=== PATIENT | male | born 2000 | race Hispanic/Latino ===

== ENCOUNTER 2024-02-19 01:25 | Emergency (ER) | payer SELFPAY ==
[2024-02-19 01:27] VITALS: BP 168/100
--- NOTE | 2024-02-19 03:10 | ED.GENMED ---
History of Present Illness
General
Chief Complaint: Ear Problem
Source: patient
Exam Limitations: none
Time Seen by Provider: 02/19/24 03:04
History of Present Illness
History of Present Illness:
This is a 23 year old male that comes in with c/o left ear pain. States that he started 3 days ago with pain in the left ear. States that he feels like there is a lump in front of the ear and behind. States that it is getting worse and that he can
only eat soup as when he bits down he had pain. Denies any fever, chills, chest pain, SOB, abd pain, nausea, vomiting, diarrhea, headache, dizziness.
Past History
Past History
ED Past Medical History: None
ED Past Surgical History: None
Social History
Tobacco: Smoker
Alcohol: Occasional
Drug: None
Personal: Single
Living: with family
Employment: Employed
Family History
Family History: Other (Noncontributory)
Review of Systems
Review of Systems
All Other Systems: ROS reviewed and negative except as documented in HPI and ROS
Constitutional: Reports no symptoms; Denies fever or chills
EENT: Reports other (Left ear pain)
Respiratory: Reports no symptoms; Denies cough or trouble breathing
Cardiac: Reports no symptoms; Denies chest pain
ABD/GI: Reports no symptoms; Denies abdominal pain, nausea, vomiting or diarrhea
: Reports no symptoms; Denies dysuria, frequency or urgency
Musculoskeletal: Reports no symptoms
Skin: Reports no symptoms
Neurological: Reports no symptoms; Denies dizzy or headache
Psychiatric: Reports no symptoms
Phy Exam
General Physical Exam
General Presentation: well appearing and no apparent distress
General age: appears stated age
General Skin: warm and dry
General Habitus: normal
General Mental: alert
General Hydration: appears well hydrated
ENT Exam
ENT Exam: pharynx normal, neck supple and TM's abnormal (Left otitis media)
Eye Exam
Eye Exam: EOMI
Cardiovascular Exam
Cardiovascular Exam: regular rate/rhythm and no murmur
Pulmonary Exam
Pulmonary Exam: lungs clear, no respiratory distress, no rales, chest non tender, no crackles, no rhonchi and no cough
Musculoskeletal Exam
Musculoskeletal Exam: full ROM
Skin Exam
Skin Exam: normal color, warm/dry, no rash and no petechia
Psychiatric Exam
Psychiatric Exam: normal mood/affect
Course
Orders/Labs/Results
Orders:
Orders
02/19/24 03:10
Amoxicillin 875 mg/Clav 125 mg [Augmentin 875 mg/125 mg] 1 tablet PO NOW STA
Vital Signs
Initial and Last Documented VS:
Initial Vital Signs
Temp Pulse Resp BP Pulse Ox
98.3 F 93 20 168/100 97
02/19/24 01:27 02/19/24 01:27 02/19/24 01:27 02/19/24 01:27 02/19/24 01:27
Last Documented Vital Signs
Temp Pulse Resp BP Pulse Ox
98.3 F 93 20 168/100 97
02/19/24 01:27 02/19/24 01:27 02/19/24 01:27 02/19/24 01:27 02/19/24 01:27
MDM/Problems Addressed
Differential Diagnosis Includes:
Otitis media.
MDM/Problems Addressed:
This is a 23 year old male that comes in with c/o left ear pain. States that this started 3 days ago and that when he bits down he has pain.
Explained to patient that he appears to have an ear infection. Will start patient on antibiotics. Patient to follow with the family doctor. Return with any concerns.
Chronic conditions affecting care:
NA
Acute Exacerbation and/or Progression of Chronic Illness:
NA
*Pulse Oximetry
Patient hypoxic: no
*EKG
Interpreted by ED Provider?: NA
Rate: EKG- N/A
*Water Plant Pump Operator Interpretation
Rate: Water Plant Pump Operator- N/A
*Critical Care Note
Total Time (30-74mins, 75-104mins- exclusive of procedures): Not Applicable
ED Attending Note
-
Portions of this chart may have been created with voice recognition software.� Occasional wrong word or��sound alike� substitutions may have occurred due to the inherent limitations of voice recognition software.
Discharge Plan
Departure
Patient Disposition: Home (Routine Discharge)
Date of Disposition: 02/19/24
Time of Disposition: 03:15
Patient with high blood pressure during this ER visit?: Yes
Condition: Good
Covid-19: Not Applicable
Discharge Problem:
Acute otitis media
Instructions: Ear infection - ED discharge instructions, BLOOD PRESSURE
Prescriptions:
New
amoxicillin-pot clavulanate 875-125 mg tablet
1 tab PO BID Qty: 19 0RF
No Action
oseltamivir [Tamiflu] 75 mg capsule
75 mg PO BID Qty: 10 0RF
Activity Restrictions/Additional Instructions:
As discussed, you have an ear infection. You have been given your first dose of antibiotic here and a prescription has been sent to your pharmacy. Please take as directed until finished. Follow up with the family doctor for recheck. You may also use
Ibuprofen 600mg every 6 hours for pain. IF YOU HAVE ANY OTHER CONCERNS PLEASE RETURN TO THE EMERGENCY ROOM.
Interventions
Interventions:
*Risk Screen - Suicide Last Done: 02/19/24 01:29
*General Assessment Last Done: 02/19/24 01:29
*Neglect/Abuse Screening Last Done: 02/19/24 01:29
ED- Fall Risk Assessment Last Done: 02/19/24 03:01
*ED COVID-19 Vaccine History Last Done: 02/19/24 01:29
Discharge Date and Time
Print Language: UZBEK
[2024-02-19] MEDS: AUGMENTIN 875 MG/125 MG 1 TABLET PO (03:20)
[2024-02-19 03:22] VITALS: BP 145/74
== END 2024-02-19 03:23 | disposition home or self-care (01) ==
LOC: EMR 01:25
PROVIDERS: EMERGENCY PHYSICIAN Emergency Medicine
DX: H66.92 Otitis media, unspecified, left ear (principal); F17.200 Nicotine dependence, unspecified, uncomplicated
CPT/HCPCS: 99283

== ENCOUNTER 2024-06-02 15:59 | Observation (INO) | payer BC, SELFPAY ==
[2024-06-02] VITALS (10 sets, daily range): BP systolic 83–134; BP diastolic 45–77; BMI 33.7
--- NOTE | 2024-06-02 12:04 | ED.GENMED ---
History of Present Illness
General
Chief Complaint: Headache
Source: patient
Exam Limitations: none
Time Seen by Provider: 06/02/24 12:05
Nursing documentation reviewed up to this point in time: agreed with
History of Present Illness
History of Present Illness:
Patient presents to ED secondary to sudden onset of frontal headache with nausea and vomiting, shortly after returning from working out at the gym. Denies trauma. Denies dizziness. Denies blurred vision. Denies loss of sensation or weakness.
Denies difficulty with swallowing. Patient does report intermittent sensation of numbness in his left hand. Denies neck pain. Denies previous history of similar symptoms. Patient otherwise is healthy, without any significant medical history.
Past History
Past History
ED Past Medical History: None
ED Past Surgical History: None
Social History
Tobacco: Smoker
Alcohol: Occasional
Drug: None
Personal: Single
Living: with family
Employment: Employed
Family History
Family History: Other (Noncontributory)
Review of Systems
Review of Systems
Allergies reviewed?: Yes
Constitutional: Reports no symptoms
Respiratory: Reports no symptoms; Denies trouble breathing
Cardiac: Reports no symptoms; Denies chest pain or syncope
ABD/GI: Reports nausea and vomiting; Denies abdominal pain
Musculoskeletal: Reports no symptoms
Skin: Reports no symptoms
Neurological: Reports headache; Denies weakness
Phy Exam
Physical Exam
Physical Exam:
Physical Exam
General: moderate distress, acutely ill. afebrile
Head: nc/at. eomi
Neck: supple. normal range of motion.
Heart: s1/s2 regular rate and rhythm, no murmur.
Lungs: no acute respiratory distress. clear bilaterally
Abdomen: normal bowel sounds. not tender.
Neuro: alert and oriented x 3. no focal neurological deficits. normal speech
Skin: no rash
Psychiatric: well kept. interactive and cooperative
Extremities: no edema. no calf tenderness.
Course
Orders/Labs/Results
Orders:
Orders
06/02/24 Breakfast
Regular
At Your Request: Full Participation
Does patient need a safe tray?: No
06/02/24 11:[address] [CT Head W/o Iv Contrast] Urgent
Comment: sudden onset while lifting weights
Reason For Exam: severe headache, N/V
06/02/24 12:19
CT Head & Neck Angio W/wo IV Urgent
Comment:
Reason For Exam: severe headache w numbness
IV Insert/Care/Rem.- Treatment PRN
Morphine Sulfate 2 mg IV NOW STA
Ondansetron Injectable [Zofran] 4 mg IV NOW STA
06/02/24 12:20
Morphine Sulfate 2 mg .ROUTE .STK-MED ONE
Ondansetron Injectable [Zofran] 4 mg .ROUTE .STK-MED ONE
06/02/24 12:31
Type+Screen Urgent
Basic Metabolic Panel Urgent
C-Reactive Protein Urgent
Comment: ADD ON
Complete Blood Count/No Diff Urgent
D-Dimer Urgent
Comment: ADD ON
Erythrocyte Sed Rate Urgent
Comment: ADD ON
Magnesium Urgent
PTT Urgent
Prothrombin Time Urgent
TSH Urgent
Comment: ADD ON
06/02/24 13:25
Dexamethasone Sod Phosphate [Decadron] 10 mg IV NOW STA
HYDROmorphone [Dilaudid] 0.5 mg IV NOW STA
Ketorolac [Toradol] 15 mg IV NOW STA
06/02/24 14:13
Aspirin Chewable [Low Strength Aspirin] 81 mg PO NOW STA
Ondansetron Injectable [Zofran] 4 mg IV NOW STA
06/02/24 14:14
Electrocardiogram (*1) Urgent
Reason for Study: QTc Monitoring
EKG- Treatment ONCE
06/02/24 14:19
0.9% Sodium Chloride 500 ml [Nss] 500 ml IV BOLUS
06/02/24 14:45
Urine Drug Abuse Screen Routine
06/02/24 14:46
MRI Brain [MR Brain Without Contrast] Routine
Comment:
Reason For Exam: left facial/left hand numbness
OK for patient to be off Cardiac Monitoring for MRI: No
Recent pill cam endoscopy?: No
06/02/24 14:58
Add On- LAB Urgent
Tests Added?: Sed Rate, CRP, Mag, TSH, dimer
06/02/24 15:10
Admit/Transfer Patient As Directed
Co-Sign Provider:
Level of Care: Observation services
Assign to:: Telemetry
Physician / Group: Wilfred
Diagnosis: Intractable Headache
Reason for Telemetry: CVA/TIA
Date to Stop Telemetry: 06/05/24
Time to Stop Telemetry: 11:00
06/02/24 15:11
Code Status As Directed
Resuscitation Status: Full Code
PRN Pain Medication Management As Directed
May give lesser potent ordered pain med per pt: Yes
preference::
Protocol:: Medication orders for pain may be administered in a
manner that supports deferring to patient preference
when the pt is:
- Requesting an ordered lesser potent pain medication.
Least to most potent pain medications are defined
as: acetaminophen < NSAID < tramadol < opioids
(morphine, oxycodone, hydromorphone).
- Requesting a lesser dose of the same medication IF
ORDERED.
- Requesting a less intrusive route of administration
if both routes are prescribed by the provider (PO <
IV).
06/02/24 15:27
Metoclopramide [Reglan] 10 mg IV NOW STA
06/02/24 15:51
Acetaminophen [Tylenol] 650 mg PO Q4HPRN PRN
06/02/24 16:18
0.9% Sodium Chloride 1000 ml [Nss] 1,000 ml IV 80 mls/hr
Diphenhydramine [Benadryl] 25 mg IV Q4HPRN PRN
Magnesium Sulfate 4 Gram/100Ml [Magnesium Sulfate] 4 gram in 100 ml IV NOW
Metoclopramide [Reglan] 10 mg IV Q6HPRN PRN
06/02/24 16:18
NEUROLOGY CONSULT Routine
Consulting Provider: Annemarie Joyce
Was physician already notified: Yes
Activity As Directed
Activity Level: Out of Bed-Early Mobility
With Assistance
Pneumatic Compression Sleeves As Directed
Type: Knee high
Vital Signs As Directed
Frequency: Per unit guidelines
DX Deep Vein Thrombosis Video Routine
06/02/24 20:00
Ketorolac [Toradol] 30 mg IV Q6HPRN PRN
06/03/24 06:00
Basic Metabolic Panel IN AM
Complete Blood Count/No Diff IN AM
06/03/24 08:00
Aspirin Chewable [Low Strength Aspirin] 81 mg PO DAILY
06/05/24 11:00
DC Protocol for Telemetry ONCE
Abnormal Lab Results
06/02/24
12:31
WBC 12.1 H 10^3/uL
(4.8-10.8)
MPV 11.4 H fL
(7.4-10.4)
Glucose 136 H mg/dl
(70-99)
Magnesium 1.5 L mg/dl
(1.6-2.3)
06/02/24 12:31
06/02/24 12:31
Vital Signs
Initial and Last Documented VS:
Initial Vital Signs
BP
123/77
06/02/24 12:34
Last Documented Vital Signs
Temp Pulse Resp BP Pulse Ox
98.9 F 66 16 111/70 100
06/02/24 16:30 06/02/24 16:30 06/02/24 16:30 06/02/24 16:30 06/02/24 16:30
MDM/Problems Addressed
MDM/Problems Addressed:
Stat CT and CTA head and neck ordered secondary to clinical concern for intracranial hemorrhage versus dissection.
Patient evaluated by neurology, , who recommends admission to the hospitalist service for further evaluation, as patient remains symptomatic. Recommend obtaining MRI brain without contrast as inpatient.
*EKG
Interpreted by ED Provider?: Yes
EKG Intrepretation Date: 06/02/24
Heart Rate: 51
Rate: bradycardiac
Rhythm: sinus
[place]: normal axis
Interval: normal interval
*Critical Care Note
Total Time (30-74mins, 75-104mins- exclusive of procedures): Not Applicable
ED Attending Note
-
Portions of this chart may have been created with voice recognition software.� Occasional wrong word or��sound alike� substitutions may have occurred due to the inherent limitations of voice recognition software.
Discharge Plan
Departure
Patient Disposition: Admit
Date of Disposition: 06/02/24
Time of Disposition: 14:21
Admit to: Telemetry
Presentation/result/management discussed w/ accepting MD/DO: Hospitalist
Discharge Problem:
Acute intractable headache
Interventions
Interventions:
*Risk Screen - Suicide Last Done: 06/02/24 11:46
*General Assessment Last Done: 06/02/24 11:46
*Neglect/Abuse Screening Last Done: 06/02/24 11:46
*ED- Fall Risk Assessment Last Done: 06/02/24 14:53
*ED COVID-19 Vaccine History Last Done: 06/02/24 14:53
*Nursing Disposition Last Done: 06/02/24 16:18
ED- Neurological Assessment Last Done: 06/02/24 12:00
Discharge Date and Time
Discharge Date/Time: 06/02/24 16:22
[2024-06-02] MEDS: ZOFRAN 4 MG IV ×2 (12:29→14:17)
[2024-06-02] MEDS: MORPHINE SULFATE 2 MG IV (12:29)
[2024-06-02 12:44] LABS: Hematocrit 47.6 % (39.0-52.0); Hemoglobin 16.5 g/dL (13.0-18.0); Mean Corp Hgb Conc. 34.7 g/dL (33.0-37.0); Mean Corpuscular Hgb 28.9 pg (27.0-31.0); Mean Corpuscular Volume 83.4 fL (80.0-94.0); Mean Platelet Volume 11.4 fL (7.4-10.4); Platelet Count 216 10^3/uL (130-400); Red Blood Cell Count 5.71 10^6/uL (4.70-6.10); Red Cell Dist. Width 12.4 % (11.5-14.5); White Blood Cell Count 12.1 10^3/uL (4.8-10.8)
[2024-06-02 12:58] LABS: INR 0.95
[2024-06-02 13:00] LABS: Blood Urea Nitrogen 12 mg/dl (9-20); Calcium 10.1 mg/dl (8.4-10.2); Carbon Dioxide 25 mmol/L (22-30); Chloride 105 mmol/L (98-107); Estimated Creatinine Clearance > 125 ml/min; Glucose 136 mg/dl (70-99); Potassium 4.2 mmol/L (3.5-5.1); Sodium 141 mmol/L (135-145); eGFR > 60.00
[2024-06-02] MEDS: DILAUDID 0.5 MG IV (13:43)
[2024-06-02] MEDS: TORADOL 15 MG IV (13:44)
[2024-06-02] MEDS: DECADRON 10 MG IV (13:44)
--- NOTE | 2024-06-02 14:35 | CON.NEURO ---
Consultation
Order
Date of Consultation: 06/02/24
Requesting Provider: Andrew Caro MD
Reason for Consult: Headache
Neurology Consultation Note.
HPI: This is a 23-year-old right-handed man who presented to [facility] on 06/02/2024 with headache. According to the patient he developed gradual in onset the right temporal throbbing pain with associated photophobia, phonophobia,
nausea and emesis as well as simultaneous in onset left perioral and right hand numbness that occurred earlier today while he was exercising in gym. The headache is worse with physical exertion and relieved with rest no reports of neck pain, fever,
neck pain.
Mr. Tipton was seen at ER in 2014 with fever and headache and with otitis media on 02/19/2024.
ER VS: 123/77, 68�48,
EKG: Sinus bradycardia at 51, QTc Int : 392 ms
PDMP: none
Labs: Glucose�136, WBCs�12.1, normal platelets,
CT head wo contrast�unremarkable
CTA head/neck�no evidence of vascular occlusion, aneurysm or dissection
MAR: Dexamethasone 10 mg, hydromorphone 0.5 mg, ketorolac 15 mg, morphine 2 mg, ondansetron 4 mg
PMH: BMI 33
PSH: None
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
FH: Mother�migraine
All:NKDA
ROS: Constitutional: Negative. Negative for chills, fever and unexpected weight change.
HENT: Negative for ear pain, hearing loss, tinnitus and trouble swallowing.
Eyes: Positive for photophobia
Respiratory: Negative for cough, choking and shortness of breath.
Cardiovascular: Negative for chest pain, palpitations and leg swelling.
Gastrointestinal: Significant nausea, vomiting
Endocrine: Negative. Negative for cold intolerance.
Genitourinary: Negative for dysuria, flank pain and urgency.
Musculoskeletal: Negative for back pain, gait problem, neck pain and neck stiffness.
Skin: Negative for rash.
Allergic/Immunologic: Negative. Negative for immunocompromised state.
Neurological: Positive for headache, left face and left hand numbness.
Psychiatric/Behavioral: Negative for behavioral problems, confusion and hallucinations.
General: In moderate distress due to pain, significantly photophobic
Cardio: Regular rate and rhythm without murmur. Extremities are without cyanosis or edema.
Neuro:
Mental Status: Somnolent. Oriented to self, place, person. Follows simple requests. Nonfluent. No hemineglect
Cranial Nerves: Pupils are equally round and reactive to light. EOMs full. Left upper and lower visual field limitations.No ptosis. No nystagmus. Face symmetric. Normal hearing AU. The palate elevated well. SCMs and traps 5/5. Tongue
midline. No dysarthria.
Motor: Normal bulk and tone. No pronator or arm drift. Strength 5/5 throughout. No clonus.
Reflexes: Limited exam due to positioning
Sensory: No extinction to DSS
Coordination: No dysmetria or tremor.
Gait: deferred
Assessment and Plan:
I. Probable migraine with aura. Rule out RCVS, infarcts or ELIGIBILITY MANAGER demyelinating disease.
II. Mild toxic encephalopathy
III. Sinus bradycardia
-Telemetry monitoring
-Please check magnesium, ESR, CRP, TFTs, urine tox
-Continue IVF
-Please check and document temperature
-Start aspirin 81 mg once a day
-IV Toradol 30 mg, Reglan 10 mg, Benadryl 25 mg Q8h PRN for moderate to severe headache.
-Brain MRI without chi given sensory complaints
-Will follow-up
I personally reviewed all radiology and labs along with past medical records pertinent to current medical problems. Total time spent in patient care is 60 minutes.
Thank you for allowing us to participate in the care of this patient. We will continue to follow. Please do not hesitate to contact us with any questions or concerns.
Subjective/Objective
Subjective Data
Date of Service: June 02, 2024
Objective Data
Lab Results
06/02/24 12:31
06/02/24 12:31
PT 13.0 Sec (11.4-14.6) 06/02/24 12:31
INR 0.95 06/02/24 12:
APTT 27.0 Sec (23.4-35.0) 06/02/24 12:
Sodium 141 mmol/L (135-145) 06/02/24 12:
Potassium 4.2 mmol/L (3.5-5.1) 06/02/24 12:
BUN 12 mg/dl (9-20) 06/02/24 12:
Glucose 136 mg/dl (70-99) H 06/02/24 12:
Calcium 10.1 mg/dl (8.4-10.2) 06/02/24 12:
Patient Allergies
No Known Allergies Allergy (Verified 06/02/24 11:45)
Medications
-
Active Medications
Generic Name Dose Route Start Last Admin
Trade Name Freq PRN Reason Stop Dose Admin
Sodium Chloride 500 mls @ 1,000 mls/hr 06/02/24 14:19
Nss IV 06/02/24 14:48
BOLUS ONE
Home Medications
�Medication �Instructions �Recorded
No Meds [No Current Medications] 06/02/24
Vital Signs and Labs
-
Vital Signs and Labs:
Lab Results
06/02/24 12:31
06/02/24 12:31
PT 13.0 Sec (11.4-14.6) 06/02/24 12:31
INR 0.95 06/02/24 12:31
APTT 27.0 Sec (23.4-35.0) 06/02/24 12:31
Sodium 141 mmol/L (135-145) 06/02/24 12:31
Potassium 4.2 mmol/L (3.5-5.1) 06/02/24 12:31
BUN 12 mg/dl (9-20) 06/02/24 12:31
Glucose 136 mg/dl (70-99) H 06/02/24 12:31
Calcium 10.1 mg/dl (8.4-10.2) 06/02/24 12:31
Medications
-
Medications:
Generic Name Dose Route Start Last Admin
Trade Name Freq PRN Reason Stop Dose Admin
Sodium Chloride 500 mls @ 1,000 mls/hr 06/02/24 14:19
Nss IV 06/02/24 14:48
BOLUS ONE
Home Medications
-
Home Medications
No Meds [No Current Medications] 06/02/24
--- NOTE | 2024-06-02 14:59 | HPS.HSE ---
Family Physician
-
Family Physician: * NONE
Chief Complaint
-
Headache
History of Present Illness
Patient is a 23 y/o male without significant past medical history who presents with headache. Patient reports headache started suddenly while he was working out at the gym lifting weights. He reports sharp stabbing sensation across the forehead
more on the right than the left. He reports associate nausea with vomiting. He admits to phonophobia and photophobia. He reports some lower lips and hand numbness earlier today. He reports occasional headaches in the past but denies prior history
of migraines. He denies fevers.
Medical History
Past Medical History
Past Medical History: Reports None
Past Surgical History: Reports None and Other
Additional Past Surgical History:
[place] Teeth Exatrction
Social History
Tobacco: Other (Patient report smoking cigarettes a few times a week)
Family History
Family History: Not pertinent
Allergies / Home Medications
Allergies reflects when Allergies were last updated in [employer]
Home Medications with original date entered in [employer]
Allergy/Medication List:
Allergies
Allergy/AdvReac Type Severity Reaction Status Date / Time
No Known Allergies Allergy Verified 06/02/24 11:45
Home Medications
No Meds [No Current Medications] 06/02/24
Review of Systems
-
A 12 point ROS was completed and negative except as noted: Yes
Constitutional: Denies Fever
Respiratory: Denies Cough or Trouble Breathing
Cardiac: Denies Chest Pain or Palpitations
Physical Exam
Vital Signs
Vital Signs
Pulse Resp BP Pulse Ox
54 19 130/77 100
06/02/24 14:45 06/02/24 13:30 06/02/24 14:00 06/02/24 14:45
Physical Exam
General: Conversant and Other (Mild distress due to headache)
HEENT: Anicteric and Moist mucous membranes
Respiratory: Clear and Non Labored Respirations
Cardiac: S1/S2 and Regular Rhythm
GI: Soft and Non Tender
Rectal: Deferred by Provider
Musculoskeletal: No Clubbing and No Cyanosis
Skin: Warm and Dry
Neuro: Awake, Alert, Oriented and No Motor Deficits
Psych: Calm
Laboratory Results
-
06/02/24 12:31
06/02/24 12:31
Laboratory Results
PT 13.0 Sec (11.4-14.6) 06/02/24 12:31
INR 0.95 06/02/24 12:31
APTT 27.0 Sec (23.4-35.0) 06/02/24 12:31
Data Reviewed
-
CT Scan: Report Reviewed by me
Lab Data: Labs Reviewed by me
Impression/Plan
-
Intractable Headache suspect Migraine with Aura
-Appreciate Neurology consult
-Check Brain MRI in setting of sensory symptoms
-Continue aspirin 81mg Daily
-Continue Toradol, Reglan and Benadryl prn headache
-Attempt to avoid opioids as they can worsen headache symptoms
DVT proph: SCDs
Code Status: Full Code
[2024-06-02] MEDS: LOW STRENGTH ASPIRIN 81 MG PO (15:04)
[2024-06-02] MEDS: NSS 500 IV (15:06)
[2024-06-02 15:20] LABS: D-Dimer < 0.27 ug/mlFEU (0.00-0.50)
[2024-06-02 15:36] LABS: Magnesium 1.5 mg/dl (1.6-2.3)
[2024-06-02 15:39] LABS: C-Reactive Protein < 5.00 mg/L (0.0-10.00)
--- NOTE | 2024-06-02 15:42 | W.PN.UPDATE ---
Update Note
Progress Note Update
Patient seen and examined and discussed with MONTRELL Mena, and I agree with her note.
Gen-AAOx3, moderate distress due to severe headache
HEENT-NC, AT, anicteric, clear oral mm
Neck-supple, full range of motion without pain
CV-reg, no M, +S1/S2
Lungs-clear B/L
Abd-soft, NT, ND
Ext-no edema
Musculoskeletal-no cyanosis, clubbing
Skin-warm and dry
Neuro-grossly non-focal
Psych-calm, cooperative
Intractable headache -presentation with sudden right-sided head pain, photophobia, nausea and vomiting while lifting weights at the gym. Concern for migraine with aura versus reversible cerebral vasoconstriction syndrome.
Denies headache history. Did have perioral paresthesias and left upper extremity numbness.
CTA head and neck unremarkable.
Await brain MRI.
Admit to [facility]. Neurology consulted. Discussed case. Hold off on Imitrex until we have ruled out RCVS.
Still complaining of 8 out of 10 headache.
Hypomagnesemia -will replete.
Obesity due to excess calories
Full code
Family updated at the bedside.
[2024-06-02 16:10] LABS: Erythrocyte Sed Rate 2 mm/hour (0-20)
[2024-06-02] MEDS: REGLAN 10 MG IV (16:59)
[2024-06-02] MEDS: FLUSH (NSS) 2 FLUSH IV (17:01)
[2024-06-02] MEDS: NSS 1000 IV (17:06)
[2024-06-02] MEDS: MAGNESIUM SULFATE 100 IV (17:06)
[2024-06-02 21:58] LABS: Amphetamines Negative (Negative); Barbiturates Negative (Negative); Benzodiazepines Negative (Negative); Buprenorphine Negative (Negative); Cocaine Negative (Negative); Marijuana Negative (Negative); Methadone Negative (Negative); Methamphetamines Negative (Negative); Opiates Positive (Negative); Phencyclidine Negative (Negative); Tricyclic Antidepressants Negative (Negative)
[2024-06-02 22:20] LABS: Fentanyl, Urine Negative (Negative)
[2024-06-03 03:12] VITALS: BP 130/51
[2024-06-03] MEDS: NSS 1000 IV (04:59)
[2024-06-03 05:56] LABS: Hematocrit 45.2 % (39.0-52.0); Hemoglobin 15.2 g/dL (13.0-18.0); Mean Corp Hgb Conc. 33.6 g/dL (33.0-37.0); Mean Corpuscular Hgb 27.9 pg (27.0-31.0); Mean Corpuscular Volume 83.1 fL (80.0-94.0); Mean Platelet Volume 11.2 fL (7.4-10.4); Platelet Count 221 10^3/uL (130-400); Red Blood Cell Count 5.44 10^6/uL (4.70-6.10); Red Cell Dist. Width 12.6 % (11.5-14.5)
[2024-06-03 06:18] LABS: Blood Urea Nitrogen 8 mg/dl (9-20); Calcium 9.4 mg/dl (8.4-10.2); Carbon Dioxide 24 mmol/L (22-30); Chloride 109 mmol/L (98-107); Estimated Creatinine Clearance > 125 ml/min; Glucose 120 mg/dl (70-99); Potassium 4.6 mmol/L (3.5-5.1); Sodium 140 mmol/L (135-145); eGFR > 60.00
[2024-06-03 07:00] VITALS: BP 94/51
[2024-06-03 08:13] VITALS: BP 94/51
--- NOTE | 2024-06-03 08:42 | W.PN.HOSP.TC ---
Today's Communication/Plan
-
Discharge today
Assessment / Plan
Assessment / Plan
Physical Exam
General: Conversant and Not in acute distress
HEENT: Normocephalic. Moist mucous membranes
Respiratory: Clear to Auscultation Bilaterally
Cardiac: S1/S2 and Regular Rhythm
GI: Soft and Non Tender. Positive bowel sounds.
Musculoskeletal: No Clubbing and No Cyanosis
Skin: Warm and Dry
Neuro: Awake, Alert, Oriented x3. Cranial Nerves 2 through 12 intact bilaterally. Strength 5/5 bilaterally. Sensation grossly intact bilaterally.
Psych: Calm
Assessment/Plan
23 y/o male without significant past medical history who presents with headache. Patient reported headache started suddenly while he was working out at the gym lifting weights. He reported sharp stabbing sensation across the forehead more on the
right than the left. He reported associated nausea with vomiting. He admitted to phonophobia and photophobia. He reported some lower lips and hand numbness earlier on the day of admission. He reports occasional headaches in the past but denies prior
history of migraines. He denied fevers.
Intractable Headache suspect Migraine with Aura
-Appreciate Neurology consult
-Brain MRI with foci of increased diffusion-weighted signal -- discussed with neurology: it is probably migraine related, neurology told patient can re-image in a year
Hypomagnesemia - RESOLVED
Obesity due to excess calories
DVT proph: SCDs
Code Status: Full Code
More than 30 minutes spent in discharge including
Final examination of the patient
Summarizing hospital stay
Instructions for continuing care to all relevant caregivers
Preparation of discharge records, prescriptions, and referral forms
Total time spent (in minutes): 38
Anticipated Discharge: Today
Subjective/Interval History
-
Date of Service: June 03, 2024
Patient was seen and examined. He reported that his headache is better, and he denied any other symptoms or complaints.
Objective Data
-
Labs:
Laboratory Results
06/03/24
05:21
WBC 12.0 H
Hgb 15.2
Hct 45.2
Plt Count 221
Sodium 140
Potassium 4.6
Chloride 109 H
Carbon Dioxide 24
BUN 8 L
Creatinine 0.7
Glucose 120 H
Calcium 9.4
Vital Signs:
Vital Signs
Temp Pulse Resp BP Pulse Ox
97.6 F 59 16 94/51 100
06/03/24 07:00 06/03/24 07:00 06/03/24 07:00 06/03/24 07:00 06/03/24 07:00
I&O
06/02/24 06/03/24 06/04/24
06:59 06:59 06:59
Intake Total 960 / 960
Output Total 200 / 200
Balance 760 / 760
[2024-06-03] MEDS: LOW STRENGTH ASPIRIN 81 MG PO (09:07)
[2024-06-03 11:00] VITALS: BP 126/57
[2024-06-03 14:03] LABS: Magnesium 2.2 mg/dl (1.6-2.3)
--- NOTE | 2024-06-03 14:29 | W.PN.NEURO.1 ---
Today's Communication / Plan
-
ok to d/c home
ok to fly
OTC analgesics PRN for headaches
at our option, repeat MRI in 1 year, and if resolved/unchanged would not continue to follow
Neuro Assessment/Plan
Assessment
migraine with aura
brain MRI imgs rev'd with patient - punctate 2 mg focus of DWI+ in right occipital cortex, seen on single image; nothing on ADC or T2/FLAIR
discussed with patient that this is likely a migraine sequela, and at this size would only show up some of the time; at our option, repeat MRI in 1 year, and as long as it's not bigger or more lesions, then no further workup would be needed.
gentle OMT cervical manipulation with improvement
Subjective/Objective
Subjective Data
Date of Service: June 03, 2024
feeling well. mild frontal headache, a little lightheaded, off balance like he's hung over but feeling well enough to go home. left sided weakness/numbness/visual aura resolved
Objective Data
Vital Signs
Temp Pulse Resp BP Pulse Ox
36.6 C 61 16 126/57 98
06/03/24 11:00 06/03/24 11:00 06/03/24 11:00 06/03/24 11:00 06/03/24 11:00
Lab Results
06/03/24 05:21
06/03/24 05:21
PT 13.0 Sec (11.4-14.6) 06/02/24 12:31
INR 0.95 06/02/24 12:31
APTT 27.0 Sec (23.4-35.0) 06/02/24 12:31
Sodium 140 mmol/L (135-145) 06/03/24 05:21
Potassium 4.6 mmol/L (3.5-5.1) 06/03/24 05:21
BUN 8 mg/dl (9-20) L 06/03/24 05:21
Glucose 120 mg/dl (70-99) H 06/03/24 05:21
Calcium 9.4 mg/dl (8.4-10.2) 06/03/24 05:21
Ur Buprenorphine Negative (Negative) 06/02/24 21:41
Patient Allergies
No Known Allergies Allergy (Verified 06/02/24 11:45)
Physical Exam
-
AAO x3, speech clear, language intact
VFF, EOMI, face symmetric
full strength
mild left c5 cervical subluxation palpated
[2024-06-03 15:10] VITALS: BP 108/52
--- NOTE | 2024-06-03 15:32 | W.DCSUMMARY ---
Discharge Summary
Discharge Data
Date of Admission: 06/02/24
Date of Discharge: 06/03/24
Total time spent discharging patient (in min): 38
-
Pending Results: No
Hospital Course
23 y/o male without significant past medical history who presented with headache which started suddenly while he was working out at the gym lifting weights. Patient reported sharp stabbing sensation across his forehead, more on the right than on the
left, as well as nausea with vomiting, phonophobia and photophobia. He also reported some lower lips and hand numbness. CT Head and CTA head were unremarkable. Patient received medications to help with his headache. Neurology was consulted and
mentioned that patient's Brain MRI (patient had Brain MRI this hospitalization) showed 'punctate 2 mg focus of DWI+ in right occipital cortex, seen on single image; nothing on ADC or T2/FLAIR.' Neurology performed OMT cervical manipulation with
improvement in headache. It was determined patient most likely had Migraine with Aura. Patient would need to follow-up with neurology with consideration for repeat Brain MRI in 1 year if advised by neurology.
Discharge Plan
-
Patient Disposition: Home (Routine Discharge)
Discharge Diagnosis/Procedures: Intractable Headache -- suspected Migraine with Aura
Brain MRI showed: 'punctate 2 mg focus of DWI+ in right occipital cortex, seen on single image; nothing on ADC or T2/FLAIR,' as per neurologist -- likely a Migraine Sequela
Hypomagnesemia - RESOLVED
Obesity due to excess calories
MRI Brain Results (as per radiologist's report)
'FINDINGS: In the posterior paramedian superior right occipital lobe, there is a 2 mm punctate focus of increased diffusion-weighted signal, seen on page 18 of diffusion-weighted images. No corresponding significant decreased ADC signal, with no
corresponding increased FLAIR signal and no corresponding decreased T2 gradient-echo signal.
This represents a nonspecific focus of increased diffusion-weighted signal. Conceivably, this could represent a small focus of acute to subacute infarction, too small to demonstrate significant decreased ADC signal. There is any history of seizure,
seizure foci can result in increased diffusion-weighted signal. There are reports of migraine headaches having foci of increased diffusion-weighted signal, which often are reversible. As warranted, follow-up MR imaging could be performed to assess
for persistence or change in this subtle small focus of increased diffusion-weighted signal.
No other focal area of convincing increased diffusion-weighted signal is identified.
There is no mass effect with no midline shift.
On T2 gradient echo sequence, there is no evidence for old microhemorrhage or vascular malformation.
The ventricles and subarachnoid cisterns appear within normal limits. No abnormal extra-axial collection is identified.
The craniocervical junction appears normal with no evidence for Chiari malformation. No gross abnormality of the pituitary gland.
Mild patchy mucosal thickening of the ethmoid sinuses. 10 mm x 4 mm polyp in addition tension cyst along the medial wall the left maxillary sinus. The sphenoid sinuses appear clear. The mastoid air cells appear clear.
Normal expected arterial flow-voids are seen within the skull base.
IMPRESSION: In the right posterior paramedian superior occipital lobe, there is a single punctate 2 mm focus of increased diffusion-weighted signal without definite corresponding signal abnormality on other sequences. See above discussion for
differential possibilities. As warranted, consider follow-up MRI to assess for interval change.
No other MR abnormality of the brain.'
Condition: Good
Diet: Low Fat, Low Cholesterol and Low Sodium
Activity: As tolerated
Blood Work: Check CBC, BMP and Magnesium with outpatient primary care provider within 1 to 2 weeks
Activity Restrictions/Additional Instructions:
You can take over the counter analgesics for headaches
Stand Alone Forms: Return to Work
Referrals:
Kita Wilcox CRNP [Specified Professional Personl] - in one to two months (Hospital Follow-up of Migraine. Repeat MRI Brain in 1 year?)
NONE,* [Family Provider] -
Prescriptions:
No Action
No Current Medications
0
Discharge Orders:
Discharge Patient (As Directed); Ordered 06/03/24
Ordered By: Ervin Seymour
Discharge Date and Time
Discharge Date/Time: 06/03/24 16:21
Print Language: WELSH
--- NOTE | 2024-06-03 15:49 | CM ---
Alert awake oriented patient who lives with his parents in an apartment with 14 steps to enter. He is independent in driving and in all activities of daily living.He was offered VN he declined need.He said family will drive him home. Regulate
Observation letter given explained . Signed copy on chart.
No VN hx / No SNF history
Pharmacy Sherice Garcia
PCP [facility]
PLAN Home Declined VN
== END 2024-06-03 16:21 | disposition home or self-care (01) ==
LOC: 4 EAST ACU 15:59
PROVIDERS: Physician Assistant Medical; ADMITTING PHYSICIAN Hospitalist; ATTENDING PHYSICIAN Hospitalist; CONSULT PHYSICIAN Psychiatry & Neurology Neurology; EMERGENCY PHYSICIAN Emergency Medicine
DX: G43.109 Migraine with aura, not intractable, without status migrainosus (principal); R11.2 Nausea with vomiting, unspecified; R20.0 Anesthesia of skin; F17.210 Nicotine dependence, cigarettes, uncomplicated; R00.1 Bradycardia, unspecified; R42 Dizziness and giddiness; E66.09 Other obesity due to excess calories; E83.42 Hypomagnesemia; Z68.33 Body mass index [BMI] 33.0-33.9, adult
CPT/HCPCS: 70450; 70496; 70498; 70551; 80048; 80306; 80307; 83735; 84443; 85027; 85379; 85610; 85652; 85730; 86140; 86850; 86900; 86901; 93005; 96374; 96375; 96376; 99285; 99406; G0378; Q9967